=== PATIENT | female | born 1985 | race Caucasian/White ===

== ENCOUNTER 2017-03-16 10:55 | Emergency (ER) | payer BC, SELFPAY | END 2017-03-16 11:28 | disposition home or self-care (01) | PROVIDERS: Emergency Provider Nurse Practitioner; Visit Provider Nurse Practitioner | DX: K04.7 Periapical abscess without sinus (principal) | CPT/HCPCS: 99201 ==

== ENCOUNTER → 2017-07-17 12:08 | Outpatient (REF) | payer BC, SELFPAY ==
[2017-07-17 18:55] LABS: Basophils # 0.1 K/mm3 (0-0.2); Eosinophils # 0.1 K/mm3 (0.0-0.4); Eosinophils % 2.7 % (0.1-12.0); Hematocrit 34.2 % (37.0-47.0); Hemoglobin 10.2 g/dL (12.2-16.2); Lymphocytes # 1.5 K/mm3 (0.7-4.5); Lymphocytes % 33.4 K/mm3 (10-50); Mean Corpuscular HGB Conc 29.9 g/dL (31.8-35.4); Mean Corpuscular Hemoglobin 24.4 pg (27.0-31.2); Mean Corpuscular Volume 81.6 fl (81-99); Mean Platelet Volume 9.1 fl (7.4-10.4); Monocytes # 0.2 K/mm3 (0.1-1.0); Neutrophils # 2.6 K/mm3 (1.8-7.8); Neutrophils % 58.9 % (37.0-80.0); Platelet Count 272 K/mm3 (142-424); Red Blood Count 4.19 M/mm3 (4.20-5.40); Red Cell Distribution Width 14.9 % (11.5-17.5); White Blood Count 4.4 K/mm3 (4.8-10.8)
[2017-07-17 20:20] LABS: Alanine Aminotransferase 19 U/L (12-78); Albumin Level 3.9 gm/dL (3.4-5.0); Albumin/Globulin Ratio 1.2 (1.1-1.8); Alkaline Phosphatase 64 U/L (46-116); Anion Gap 14.3 mEq/L (5-15); Aspartate Amino Transferase 17 U/L (15-37); Bilirubin,Total 1.2 mg/dL (0.2-1.0); Blood Urea Nitrogen 19 mg/dL (7-18); Calcium 8.8 mg/dL (8.5-10.1); Carbon Dioxide 24 mmol/L (21.0-32.0); Chloride 106 mmol/L (98-107); Creatinine,Serum 0.57 mg/dL (0.55-1.02); Estimated Glomerular Filt Rate 124 ml/min (>60); Free Thyroxine Index 3.3 ug/dL (5.93-13.13); GFR (African American) 150 ML/MIN (>60); Globulin 3.2 gm/dl (1.3-3.2); Glucose 92 mg/dL (74-106); Potassium 4.3 mmoL/L (3.5-5.1); Sodium 140 mmol/L (136-145); T4 (Thyroxine) 9.6 ug/dl (4.7-13.3); Total Protein,Serum 7.1 gm/dL (6.4-8.2); Triiodothryronine (T3) Uptake 34 % (31-39)
[2017-07-21 17:16] LABS: 1,25-Dihydroxy, Vitamin D-2 <10 pg/mL (.)
[2017-07-21 17:30] LABS: 1,25 Dihydroxy Vitamin D 34 pg/mL (.); 1,25-Dihydroxy, Vitamin D-3 34 pg/mL (.)
== END ==
LOC: LAB 12:08
PROVIDERS: Visit Provider Nurse Practitioner Family
DX: R53.83 Other fatigue (principal)
CPT/HCPCS: 80053; 82652; 84436; 84443; 84479; 85025

== ENCOUNTER → 2021-08-07 12:07 | Outpatient (CLI) | payer OTHER, SELFPAY ==
[2021-08-07 18:30] LABS: Basophils # 0.1 K/mm3 (0-0.2); Basophils % 1.7 % (0.1-2.0); Eosinophils # 0.2 K/mm3 (0.0-0.4); Eosinophils % 3.8 % (0.1-12.0); Hematocrit 29.5 % (37.0-47.0); Hemoglobin 9.2 g/dL (12.2-16.2); Lymphocytes # 1.7 K/mm3 (0.7-4.5); Lymphocytes % 29.5 % (10-50); Mean Corpuscular HGB Conc 31.2 g/dL (31.8-35.4); Mean Corpuscular Hemoglobin 21.6 pg (27.0-31.2); Mean Platelet Volume 8.8 fl (7.4-10.4); Monocytes # 0.2 K/mm3 (0.1-1.0); Monocytes % 3.2 % (1.7-9.3); Neutrophils # 3.6 K/mm3 (1.8-7.8); Neutrophils % 61.7 % (37.0-80.0); Platelet Count 355 K/mm3 (142-424); Red Blood Count 4.27 M/mm3 (4.20-5.40); Red Cell Distribution Width 17.6 % (11.5-17.5); White Blood Count 5.9 K/mm3 (4.8-10.8)
[2021-08-07 19:34] LABS: Alanine Aminotransferase 15 U/L (12-78); Albumin Level 4.1 g/dl (3.5-5.0); Albumin/Globulin Ratio 1.5 (1.1-1.8); Alkaline Phosphatase 81 U/L (38-126); Anion Gap 11.2 mEq/L (5-15); Aspartate Amino Transferase 23 U/L (14-36); Bilirubin,Total 1.1 mg/dl (0.2-1.3); Blood Urea Nitrogen 11 mg/dl (7-17); Calcium 9.1 mg/dl (8.4-10.2); Carbon Dioxide 25 mmol/L (22.0-30.0); Chloride 106 mmol/L (98-107); Chol/HDL Ratio 3.9 (1-3.5); Cholesterol 161 mg/dl (140-200); Estimated Glomerular Filt Rate 114 ml/min (>60); GFR (African American) 138 ML/MIN (>60); Globulin 2.7 g/dL (1.3-3.2); Glucose 89 mg/dl (74-100); HDL Cholesterol 41 mg/dl (40-60); Potassium 4.2 mmoL/L (3.5-5.1); Sodium 138 mmol/L (136-145); Total Protein,Serum 6.8 g/dl (6.3-8.2); Triglycerides 280 mg/dl (30-150); VLDL Cholesterol 56 mg/dL (0-40)
[2021-08-07 19:45] LABS: Direct LDL Cholesterol 85.42 mg/dL (100-129)
[2021-08-07 19:53] LABS: T4 (Thyroxine) 8.7 ug/dl (5.53-11.0)
[2021-08-07 20:06] LABS: Thyroid Stimulating Hormone 3.07 uIU/mL (0.465-4.68)
[2021-08-07 23:09] LABS: 25-OH Vitamin D, Total < 12.8 ng/mL (30-100)
== END ==
PROVIDERS: PCP Nurse Practitioner Family; Visit Provider Nurse Practitioner Family
DX: Z00.00 Encounter for general adult medical examination without abnormal findings (principal); E55.9 Vitamin D deficiency, unspecified; E66.9 Obesity, unspecified; Z68.32 Body mass index [BMI] 32.0-32.9, adult
CPT/HCPCS: 80053; 80061; 82306; 84436; 84443; 85025

== ENCOUNTER → 2021-11-14 06:59 | Outpatient (CLI) | payer OTHER, SELFPAY ==
[2021-11-14 19:54] LABS: Basophils # 0.1 K/mm3 (0-0.2); Basophils % 1.1 % (0.1-2.0); Eosinophils # 0.3 K/mm3 (0.0-0.4); Eosinophils % 4.9 % (0.1-12.0); Hematocrit 34.8 % (37.0-47.0); Hemoglobin 10.6 g/dL (12.2-16.2); Lymphocytes # 1.5 K/mm3 (0.7-4.5); Lymphocytes % 29.3 % (10-50); Mean Corpuscular HGB Conc 30.6 g/dL (31.8-35.4); Mean Corpuscular Hemoglobin 23.5 pg (27.0-31.2); Mean Corpuscular Volume 76.8 fl (81-99); Mean Platelet Volume 9.5 fl (7.4-10.4); Monocytes # 0.2 K/mm3 (0.1-1.0); Monocytes % 4.3 % (1.7-9.3); Neutrophils % 60.3 % (37.0-80.0); Platelet Count 288 K/mm3 (142-424); Red Blood Count 4.53 M/mm3 (4.20-5.40); Red Cell Distribution Width 18.6 % (11.5-17.5)
[2021-11-14 20:04] LABS: Iron 25 ug/dL (37-170)
[2021-11-14 20:13] LABS: Total Iron Binding Capacity 391 ug/dL (265-497)
[2021-11-14 20:40] LABS: Ferritin 5.02 ng/ml (6.24-137)
[2021-11-16 18:41] LABS: Peripheral Smear Review Scanned Result
== END ==
PROVIDERS: PCP Physician Assistant; Visit Provider Physician Assistant
DX: C85.90 Non-Hodgkin lymphoma, unspecified, unspecified site (principal); D64.9 Anemia, unspecified
CPT/HCPCS: 82728; 83540; 83550; 85025

== ENCOUNTER 2022-03-24 18:04 | Emergency (ER) | payer OTHER, SELFPAY ==
[2022-03-24 18:20] VITALS: BP 125/71; PULSE 91; RESP 16; TEMP 36.8; O2SAT 100; BMI 34.2
--- NOTE | 2022-03-24 18:51 | EXP.UTC ---
Discharge Plan Disposition Patient Disposition: Home, Self-Care Condition: Good Prescriptions Prescriptions: New amoxicillin [amoxicillin] 500 mg tablet 500 mg PO BID 10 Days Qty: 20 0RF No Action albuterol sulfate 90 mcg/actuation HFA aerosol inhaler See Rx Instructions .ROUTE .COMPLEX Qty: 18 6RF Dose Instruction: INHALE 1-2 PUFFS BY MOUTH EVERY 4 TO 6 HOURS NEEDED --SHAKE WELL BEFORE USE-- Rx Instructions: INHALE 1-2 PUFFS BY MOUTH EVERY 4 TO 6 HOURS NEEDED --SHAKE WELL BEFORE USE-- ergocalciferol (vitamin D2) 1,250 mcg (50,000 unit) capsule 50,000 unit PO QWEEK Qty: 14 0RF bupropion HCl 150 mg tablet extended release 24 hr 150 mg PO DAILY Qty: 30 2RF Slow Release Iron 144 mg (45 mg iron) tablet extended release 144 mg PO DAILY Qty: 90 3RF phentermine [Adipex-P] 37.5 mg tablet 37.5 mg PO DAILY Qty: 30 0RF Rx Instructions: must administer 30 minutes before or 1-2 hours after breakfast fluticasone propion-salmeterol [Advair Diskus] 100-50 mcg/dose blister with device See Rx Instructions .ROUTE .COMPLEX Qty: 60 2RF Dose Instruction: INHALE 1 PUFF BY MOUTH TWICE DAILY FOR ASTHMA Rx Instructions: INHALE 1 PUFF BY MOUTH TWICE DAILY FOR ASTHMA Referrals Follow up/Referrals: Rosalinda Sanches APRN [Primary Care Provider] - See instructions Activity Restrictions/Add. Instructions Additional Instructions/Restrictions: Start antibiotic as soon as possible and be sure to take as ordered for full length of time even though he should start feeling better in 24-48 hours. Tylenol or Motrin as needed for pain or fever Encourage fluids, water, Gatorade, Powerade, Pedialyte if infant/toddler/child Warm compresses often helps when placed over ear Return immediately for new or worsening symptoms no noticeable improvement in 48-72 hours and in 10-14 days to ensure the ears are return to baseline. Follow-up with primary care Clinical Impressions Clinical Impression: Otitis media Instructions Patient Instructions: Middle Ear Infection Discharge ED Provider: Verónica ([facility])Rosalinda [facility] [place] HPI General Stated complaint: left ear ache Mode of Arrival: Ambulatory Source of Information: Patient Limitations: No Limitations Time Seen by Provider: 03/24/22 18:52 Description of Symptoms (Recalled from Triage Doc. by RN): PATIENT C/O LEFT EAR PAIN X 2 DAYS HEENT Symptoms (Recalled from RN notes): Yes Resp Symptoms (Recalled from RN notes): No Skin Symptoms (Recalled from RN notes): No MS Symptoms (Recalled from RN notes): No Functional Status (Recalled from RN notes): WNL History of Present Illness Provider Complaint: 36 yr old female presents for left ear pain for 2 days Related Data Previous Rx's Medication Instructions Recorded albuterol sulfate 90 mcg/actuation See Rx Instructions .Route 11/14/21 aerosol inhaler .COMPLEX #18 grams ergocalciferol (vitamin D2) 1,250 50,000 unit PO QWEEK #14 caps 11/14/21 mcg (50,000 unit) capsule ferrous sulfate, dried 144 mg (45 144 mg PO DAILY #90 tabs 11/15/21 mg iron) tablet,extended release (Slow Release Iron) phentermine 37.5 mg tablet 37.5 mg PO DAILY #30 tabs 01/12/22 (Adipex-P) bupropion HCl 150 mg 24 hr tablet, 150 mg PO DAILY #30 tabs 02/15/22 extended release fluticasone 100 mcg-salmeterol 50 See Rx Instructions .Route 02/26/22 mcg/dose blistr powdr for .COMPLEX #60 blisters inhalation (Advair Diskus) amoxicillin 500 mg tablet 500 mg PO BID 10 days #20 tabs 03/24/22 Allergies Allergy/AdvReac Type Severity Reaction Status Date / Time No Known Allergies Allergy Verified 02/15/22 13:44 Worker's Comp Is this a Worker's Comp case?: No [facility] Disclaimer: The information contained in this section may have been updated after the patient was seen, as this information can be updated by other users. Medical History , [employer]) Asthma History of
[2022-03-24 19:12] VITALS: BP 125/71; PULSE 91; RESP 16; TEMP 36.8; O2SAT 100
== END 2022-03-24 19:35 | disposition home or self-care (01) ==
PROVIDERS: Emergency Provider Nurse Practitioner Family; PCP Nurse Practitioner Family
DX: H66.92 Otitis media, unspecified, left ear (principal)
CPT/HCPCS: 99212; 99213; G0463

== ENCOUNTER 2022-07-12 13:40 | Emergency (ER) | payer OTHER, SELFPAY ==
[2022-07-12 13:49] VITALS: BP 121/94; PULSE 95; RESP 17; TEMP 36.7; O2SAT 100; BMI 35.9
[2022-07-12 14:07] VITALS: BP 121/94; PULSE 95; RESP 17; TEMP 36.7; O2SAT 95; BMI 35.9
--- NOTE | 2022-07-12 14:08 | EXP.UTC ---
Discharge Plan Disposition Patient Disposition: Home, Self-Care Condition: Good Prescriptions Prescriptions: No Action albuterol sulfate 90 mcg/actuation HFA aerosol inhaler See Rx Instructions .ROUTE .COMPLEX Qty: 18 6RF Dose Instruction: INHALE 1-2 PUFFS BY MOUTH EVERY 4 TO 6 HOURS NEEDED --SHAKE WELL BEFORE USE-- Rx Instructions: INHALE 1-2 PUFFS BY MOUTH EVERY 4 TO 6 HOURS NEEDED --SHAKE WELL BEFORE USE-- ergocalciferol (vitamin D2) 1,250 mcg (50,000 unit) capsule 50,000 unit PO QWEEK Qty: 14 0RF dextroamphetamine-amphetamine [Adderall XR] 10 mg capsule,extended release 24hr 10 mg PO DAILY fluticasone propion-salmeterol [Advair Diskus] 100-50 mcg/dose blister with device See Rx Instructions .ROUTE .COMPLEX Rx Instructions: INHALE 1 PUFF BY MOUTH TWICE DAILY FOR ASTHMA bupropion HCl 150 mg tablet extended release 24 hr See Rx Instructions .ROUTE .COMPLEX Rx Instructions: TAKE ONE TABLET BY MOUTH EVERY DAY Slow Release Iron 144 mg (45 mg iron) tablet extended release 144 mg PO DAILY Referrals Follow up/Referrals: Angelica Cabrera PA [Primary Care Provider] - See instructions Activity Restrictions/Add. Instructions Additional Instructions/Restrictions: Follow up with your regular doctor. GO TO THE ER FOR ANY WORSENING SYMPTOMS Clinical Impressions Clinical Impression: Acute foreign body of right ear Instructions Patient Instructions: DI for Removal of Foreign Body From Ear Discharge ED Provider: Fran Odonnell [facility] General Stated complaint: AO@home 07/12 RT ear possible foreign object Mode of Arrival: Ambulatory Limitations: No Limitations Time Seen by Provider: 07/12/22 14:07 Description of Symptoms (Recalled from Triage Doc. by RN): FOREIGN BODY TO RIGHT EAR History of Present Illness Provider Complaint: She states that she has the end of an ear flushing tool in her right ear. Related Data Home Medications Medication Instructions Recorded Confirmed bupropion HCl 150 mg 24 hr tablet, See Rx Instructions .Route 07/12/22 07/12/22 extended release .COMPLEX . dextroamphetamine-amphetamine ER 10 mg PO DAILY adhd 07/12/22 07/12/22 10 mg 24hr capsule,extend release (Adderall XR) ferrous sulfate, dried 144 mg (45 144 mg PO DAILY Supplement 07/12/22 07/12/22 mg iron) tablet,extended release (Slow Release Iron) fluticasone 100 mcg-salmeterol 50 See Rx Instructions .Route 07/12/22 07/12/22 mcg/dose blistr powdr for .COMPLEX . inhalation (Advair Diskus) Previous Rx's Medication Instructions Recorded albuterol sulfate 90 mcg/actuation See Rx Instructions .Route 11/14/21 aerosol inhaler .COMPLEX #18 grams ergocalciferol (vitamin D2) 1,250 50,000 unit PO QWEEK #14 caps 11/14/21 mcg (50,000 unit) capsule Allergies Allergy/AdvReac Type Severity Reaction Status Date / Time No Known Allergies Allergy Verified 07/12/22 14:09 [facility] Disclaimer: The information contained in this section may have been updated after the patient was seen, as this information can be updated by other users. Medical History Asthma History of anemia Lymphoma in remission Obesity (BMI 30.0-34.9) Surgical History History of section History of cholecystectomy History of tonsillectomy History of tubal ligation Social History Smoking Status: Former smoker alcohol intake: never substance use type: denies use current occupational status: employed Travel in the last 8 weeks: None household members: spouse and children housing: house ROS Obtained: Yes All systems reviewed & no additional complaints except as documented Constitutional Constitutional: Denies chills and Denies fever(s) Eyes Eyes: Denies eye discharge ENT Ears, Nose, Jenny
[2022-07-12 14:54] VITALS: BP 121/94; PULSE 95; RESP 17; TEMP 36.7; O2SAT 95
== END 2022-07-12 14:54 | disposition home or self-care (01) ==
LOC: ER 13:49 → UTC 13:51
PROVIDERS: Emergency Provider Nurse Practitioner Family; PCP Physician Assistant
DX: T16.1XXA Foreign body in right ear, initial encounter (principal); Z87.891 Personal history of nicotine dependence
CPT/HCPCS: 69200; 99213; 99214; G0463

== ENCOUNTER → 2022-08-20 13:38 | Outpatient (CLI) | payer OTHER, SELFPAY ==
[2022-08-20 13:32] LABS: Alanine Aminotransferase 61 U/L (12-78); Albumin Level 4.2 g/dl (3.5-5.0); Albumin/Globulin Ratio 1.5 (1.1-1.8); Alkaline Phosphatase 71 U/L (38-126); Anion Gap 12.8 mEq/L (5-15); Aspartate Amino Transferase 64 U/L (14-36); Blood Urea Nitrogen 13 mg/dl (7-17); Calcium 9.1 mg/dl (8.4-10.2); Carbon Dioxide 27 mmol/L (22.0-30.0); Chloride 106 mmol/L (98-107); Cholesterol 193 mg/dl (140-200); Estimated Glomerular Filt Rate 81 ml/min (>60); GFR (African American) 98 ML/MIN (>60); Globulin 2.8 g/dL (1.3-3.2); Glucose 96 mg/dl (74-100); HDL Cholesterol 48 mg/dl (40-60); Potassium 4.8 mmoL/L (3.5-5.1); Sodium 141 mmol/L (136-145); Triglycerides 353 mg/dl (30-150); VLDL Cholesterol 71 mg/dL (0-40)
[2022-08-20 13:44] LABS: Direct LDL Cholesterol 96.45 mg/dL (100-129)
[2022-08-20 13:49] LABS: Hemoglobin A1C 4.7 % (4.0-6.0)
[2022-08-20 13:54] LABS: Basophils % 0.7 % (0.1-2.0); Eosinophils # 0.3 K/mm3 (0.0-0.4); Eosinophils % 4.2 % (0.1-12.0); Hematocrit 39.8 % (37.0-47.0); Hemoglobin 12.9 g/dL (12.2-16.2); Lymphocytes # 1.5 K/mm3 (0.7-4.5); Lymphocytes % 23.5 % (10-50); Mean Corpuscular HGB Conc 32.5 g/dL (31.8-35.4); Mean Corpuscular Hemoglobin 29.7 pg (27.0-31.2); Mean Corpuscular Volume 91.3 fl (81-99); Mean Platelet Volume 8.1 fl (7.4-10.4); Monocytes # 0.3 K/mm3 (0.1-1.0); Monocytes % 4.4 % (1.7-9.3); Neutrophils # 4.3 K/mm3 (1.8-7.8); Neutrophils % 67.2 % (37.0-80.0); Platelet Count 207 K/mm3 (142-424); Red Blood Count 4.36 M/mm3 (4.20-5.40); Red Cell Distribution Width 13.2 % (11.5-17.5); White Blood Count 6.3 K/mm3 (4.8-10.8)
[2022-08-20 14:06] LABS: Thyroid Stimulating Hormone 3.54 uIU/mL (0.465-4.68)
== END ==
PROVIDERS: PCP Physician Assistant; Visit Provider Physician Assistant
DX: E11.9 Type 2 diabetes mellitus without complications (principal); E66.9 Obesity, unspecified; Z68.37 Body mass index [BMI] 37.0-37.9, adult
CPT/HCPCS: 80053; 80061; 83036; 84443; 85025

== ENCOUNTER → 2022-08-20 14:44 | Outpatient (CLI) | payer OTHER, SELFPAY | PROVIDERS: PCP Physician Assistant; Visit Provider Physician Assistant | DX: E66.9 Obesity, unspecified (principal) ==

== ENCOUNTER → 2022-09-03 13:17 | Outpatient (CLI) | payer OTHER, SELFPAY | PROVIDERS: PCP Physician Assistant; Visit Provider Physician Assistant | DX: R06.83 Snoring (principal); R53.83 Other fatigue; G47.30 Sleep apnea, unspecified | CPT/HCPCS: G0399 ==

== ENCOUNTER → 2023-02-27 14:37 | Outpatient (CLI) | payer OTHER, SELFPAY ==
[2023-02-27 13:09] LABS: Phencyclidine Screen,Urine Negative ng/ml (<25)
[2023-02-27 13:30] LABS: Barbiturates Screen,Urine Negative ng/ml (<200)
[2023-02-27 13:31] LABS: Amphetamine/Metha Screen,Urine Positive ng/ml (<1000)
[2023-02-27 13:32] LABS: Benzodiazepines Screen,Urine Negative ng/ml (<200); Cocaine Screen,Urine Negative ng/ml (<300)
[2023-02-27 13:33] LABS: Cannabinoid Screen,Urine Negative ng/ml (<50)
[2023-02-27 13:34] LABS: Methadone Screen,Urine Negative ng/ml (<300); Opiate Screen,Urine Negative ng/ml (<300)
== END ==
PROVIDERS: PCP Physician Assistant; Visit Provider Physician Assistant
DX: F90.9 Attention-deficit hyperactivity disorder, unspecified type (principal)
CPT/HCPCS: 80305

== ENCOUNTER 2024-02-12 10:55 | Outpatient (CLI) | payer OTHER, SELFPAY ==
[2024-02-12 19:10] LABS: Basophils # 0.1 K/mm3 (0-0.2); Basophils % 1.4 % (0.1-2.0); Eosinophils # 0.1 K/mm3 (0.0-0.4); Hematocrit 39.5 % (37.0-47.0); Hemoglobin 13.1 g/dL (12.2-16.2); Lymphocytes # 1.1 K/mm3 (0.7-4.5); Lymphocytes % 24.4 % (10-50); Mean Corpuscular HGB Conc 33.2 g/dL (31.8-35.4); Mean Corpuscular Volume 81.5 fl (81-99); Mean Platelet Volume 9.4 fl (7.4-10.4); Monocytes # 0.2 K/mm3 (0.1-1.0); Monocytes % 4.3 % (1.7-9.3); Neutrophils # 3.1 K/mm3 (1.8-7.8); Neutrophils % 66.9 % (37.0-80.0); Platelet Count 257 K/mm3 (142-424); Red Blood Count 4.84 M/mm3 (4.20-5.40); Red Cell Distribution Width 16.9 % (11.5-17.5); White Blood Count 4.6 K/mm3 (4.8-10.8)
[2024-02-12 20:07] LABS: Alanine Aminotransferase 14 U/L (12-78); Albumin Level 4.2 g/dl (3.5-5.0); Albumin/Globulin Ratio 1.8 (1.1-1.8); Alkaline Phosphatase 63 U/L (38-126); Anion Gap 13.8 mEq/L (5-15); Aspartate Amino Transferase 20 U/L (14-36); Bilirubin,Total 1.2 mg/dl (0.2-1.3); Blood Urea Nitrogen 12 mg/dl (7-17); Calcium 9.2 mg/dl (8.4-10.2); Carbon Dioxide 24 mmol/L (22.0-30.0); Chloride 107 mmol/L (98-107); Chol/HDL Ratio 3.7 (1-3.5); Cholesterol 157 mg/dl (140-200); Estimated Glomerular Filt Rate 94 ml/min (>60); GFR (African American) 114 ML/MIN (>60); Globulin 2.4 g/dL (1.3-3.2); Glucose 79 mg/dl (74-100); HDL Cholesterol 42 mg/dl (40-60); Potassium 4.8 mmoL/L (3.5-5.1); Sodium 140 mmol/L (136-145); Total Protein,Serum 6.6 g/dl (6.3-8.2); Triglycerides 146 mg/dl (30-150); VLDL Cholesterol 29 mg/dL (0-40)
[2024-02-12 20:18] LABS: Direct LDL Cholesterol 95.95 mg/dL (100-129)
[2024-02-12 20:24] LABS: 25-OH Vitamin D, Total 14.8 ng/mL (30-100); Free T4 (Free Thyroxine) 1.49 ng/dl (0.78-2.19)
[2024-02-12 20:38] LABS: Thyroid Stimulating Hormone 1.28 uIU/mL (0.465-4.68)
== END 2024-02-12 23:59 | disposition home or self-care (01) ==
LOC: LAB.DROPOF 02-14 08:54
PROVIDERS: PCP Nurse Practitioner Acute Care; Visit Provider Nurse Practitioner Acute Care
DX: F90.2 Attention-deficit hyperactivity disorder, combined type (principal); E61.1 Iron deficiency; Z13.220 Encounter for screening for lipoid disorders; E55.9 Vitamin D deficiency, unspecified
CPT/HCPCS: 80050; 80053; 80061; 82306; 84439; 84443; 85025